=== PATIENT | female | born 2005 | race Caucasian/White ===

== ENCOUNTER → 2025-06-15 12:45 | Outpatient (BNVA) | payer OTHER, SELFPAY | PROVIDERS: Visit Provider Physician Assistant | DX: Z77.21 Contact with and (suspected) exposure to potentially hazardous body fluids (principal); S50.811A Abrasion of right forearm, initial encounter; W50.4XXA Accidental scratch by another person, initial encounter | CPT/HCPCS: 84450; 84460; 84702; 85025; 86704; 86706; 86803; 87340; 87389; 99204 ==

== ENCOUNTER → 2025-06-19 08:27 | Outpatient (BNVA) | payer OTHER, SELFPAY | PROVIDERS: Visit Provider Physician Assistant Medical | DX: Z77.21 Contact with and (suspected) exposure to potentially hazardous body fluids (principal); S50.811A Abrasion of right forearm, initial encounter; W50.4XXA Accidental scratch by another person, initial encounter; Z02.79 Encounter for issue of other medical certificate | CPT/HCPCS: 99213 ==

== ENCOUNTER → 2025-06-28 08:14 | Outpatient (BNVA) | payer OTHER, SELFPAY | PROVIDERS: Visit Provider Physician Assistant Medical | DX: Z77.21 Contact with and (suspected) exposure to potentially hazardous body fluids (principal) | CPT/HCPCS: 82150; 82565; 84450; 84460; 85025; 99213 ==

== ENCOUNTER → 2025-07-12 08:13 | Outpatient (BNVA) | payer OTHER, SELFPAY | PROVIDERS: Visit Provider Physician Assistant Medical | DX: Z77.21 Contact with and (suspected) exposure to potentially hazardous body fluids (principal); Z02.79 Encounter for issue of other medical certificate | CPT/HCPCS: 84450; 84460; 87389; 99213 ==

== ENCOUNTER 2025-07-30 08:17 | Outpatient (REF) | payer OTHER, SELFPAY ==
[2025-07-30 14:18] LABS: MANUAL DIFF FLAG NO
[2025-07-30 14:25] LABS: Hematocrit 37.0 % (37.0-47.0); Hemoglobin 12.0 g/dl (12.0-16.0); Imm Gran Abs Auto 0.01 X10*3/uL (0.00-0.03); Imm Gran Pct Auto 0.2 % (0.0-0.4); Lymphocytes Absolute Auto 1.8 X10*3/uL (1.2-4.9); Mean Corpuscular HGB Conc 32.4 g/dl (31.0-35.0); Mean Corpuscular Hemoglobin 25.4 pg (27.0-33.0); Mean Corpuscular Volume 78.4 fL (80.0-98.0); NRBC Abs Auto 0.000 X10*3/uL (0.0-0.012); NRBC Pct Auto 0.0 /100WBC (0.0-0.2); Platelet Count 308 X10*3/uL (160-400); Red Blood Count 4.72 X10*6/uL (4.20-5.50); White Blood Count 6.5 X10*3/uL (4.8-10.8)
[2025-07-30 15:35] LABS: Alanine Aminotransferase 20 U/L (0-31); Aspartate Amino Transferase 25 U/L (5-31); Estimated Glomerular Filt Rate > 60
[2025-07-30 17:37] LABS: Amylase 52 U/L (28-100)
--- OUTSIDE RECORDS SUMMARY | 2025-07-30 17:42 | XMS_ITS | Encounter Summary ---
Author Organization [facility] Address [address] [place] [address] Phone Care Team Providers Care Repairer Wood Furniture Name Role Phone Ninoska Murrell MD Primary Care Provider Encounter Details Date Type Department Care Team (Late st Contact Info) Description 09/15/2016 Documentation [facility] Family Medicine [address] [place] [address] Family Medicine, Physician [address] [place], [place] [id number] Social History Tobacco Use Types Packs/Day Years Used Date Smoking Tobacco: Never Comments:Never smoker Comments Unknown Sex and Gender Information Value Date Recorded Sex Assigned at Not on file Legal Sex Female 5:13 PM EDT Gender Identity Female 02/13/2022 3:46 PM EDT Sexual Orientation Not on file documented as of this encounter Plan of Treatment Not on file documented as of this encounter Visit Diagnoses Not on filedocumented in this encounter Care Teams Repairer Wood Furniture Relationship Specialty Start Date End Date Ninoska Murrell MD [address] [place] [id number] PCP - General 04/09/17 04/19/24 documented as of this encounter
--- OUTSIDE RECORDS SUMMARY | 2025-07-30 17:42 | XMS_ITS | Encounter Summary ---
Author Organization [facility] Address [address] [place] [address] Phone Care Team Providers Care Marble And Granite Polisher Name Role Phone Ninoska Murrell MD Primary Care Provider Encounter Details Date Type Department Care Team (Late st Contact Info) Description 04/15/2017 Conversion Encounter [facility] [place] [address] [place] [address] Social History Tobacco Use Types Packs/Day Years [...] on filedocumented in this encounter Care Teams Marble And Granite Polisher Relationship Specialty Start Date End Date Ninoska Murrell MD [address] [place] [address] PCP - General 04/09/17 04/19/24 documented as of this encounter
--- OUTSIDE RECORDS SUMMARY | 2025-07-30 17:42 | XMS_ITS | Clinical Summary ---
Author Organization [facility] Address [address] [place] [id number] Phone Care Team Providers Care Command And Control Name Role Phone Unavailable Primary Care Provider Unavailabl e Allergies No known active allergies Medications Nexplanon 68 MG implant 01/14/2022 Active Active Problems Problem Noted Date Diagnosed Date Moderate episode of recurrent major depressive d isorder 02/11/2022 Overview (02/27/2022): 02/10/22; WHO completed and dx on this date. F/u will be scheduled. Kristopher [birth year]; diag completed. Safety plan created. Kristopher Assessment & Plan (02/08/2024 5:44 PM EDT): Declined WHO to [facility] today, states she feels like things are stable right now, not concerned; did accept a list of community resources in case she changes her mind Assessment & Plan (03/13/2022 9:55 AM EDT): PHQ9 screening completed today suggests moderate symptoms of depression, symptoms identified during consultation also support a diagnosis related to depressive disorder. Symptoms have been persistent since a young age and exacerbated in June 2021, are experienced most days of the week. Considering duration and severity of symptoms outpatient long-term therapy would be of benefit. F/u appt will be scheduled to support identified needs, while Kaylen returns to college in March. PLAN: 1. Follow up with [facility]; Virtual visit will be scheduled, Kaylen is aware that appt could be scheduled in person or virtual. 2. Patient goal is to learn coping strategies and decrease panic attacks. 3. Behavioral Recommendations: a. Focus on questions discussed today regarding college. Assessment & Plan (02/27/2022 4:27 PM EDT): PHQ9 screening completed today suggests moderate symptoms of depression, symptoms identified during consultation also support a diagnosis related to depressive disorder. Symptoms have been persistent since a young age and exacerbated in June 2021, are experienced most days of the week. Considering duration and severity of symptoms outpatient long-term therapy would be of benefit. F/u appt will be scheduled to support identified needs, while Kaylen returns to college in March. PLAN: 1. Follow up with [facility]; Virtual visit will be scheduled, Kaylen is aware that appt could be scheduled in person or virtual. 2. Patient goal is to learn coping strategies and decrease panic attacks. 3. Behavioral Recommendations: a. Review safety plan as needed b. Contact crisis if any safety concern arises. c. Identify pros and cons of decisions you are considering which were identified today. Assessment & Plan (02/11/2022 11:56 AM EDT): PHQ9 screening completed today suggests moderate symptoms of depression, symptoms identified during consultation also support a diagnosis related to depressive disorder. Symptoms have been persistent since a young age and exacerbated in June 2021, are experienced most days of the week. Considering duration and severity of symptoms outpatient long-term therapy would be of benefit. F/u appt will be scheduled to support identified needs, while Kaylen returns to college in March. PLAN: 1. Follow up with [facility]; Virtual visit will be scheduled, Kaylen is aware that appt could be scheduled in person or virtual. 2. Patient goal is to learn coping strategies and decrease panic attacks. 3. Behavioral Recommendations: a. Distraction activities as music b. Grounding techniques (aroma, object in the room) c. Positive affirmations d. Identifying positive outlets for thoughts and emotions Anxiety disorder 02/11/2022 Overview (02/11/2022): 02/10/22; WHO completed and dx on this date. F/u will be scheduled. Kristopher Assessment & Plan (02/08/2024 5:44 PM EDT): Declined WHO to [facility] today, states she feels like things are stable right now, not concerned; did accept a list of community resources in case she changes her mind History of concussion 12/04/2020 Overview (12/04/2020): approx 5 yr ago Assessment & Plan (12/04/2020 11:24 AM EDT): approx 5 yr ago minor per mom no residual s/s Oligomenorrhea 10/30/2019 Overview (10/30/2019): Referred to [facility], Dr. Sofya Greenwood. Seen in Sep 2019 BMI (body mass index), pedia tric, 5% to less than 85% for age 0109/12/2019 Immunizations Immunization Administration Dates Next Due DTaP 5 07/13/2007, 5,2003,07/30,2003 H1N1 10/25/2009,09/18/2009 HPV Vaccine 9 Valent 06/12/2015 HPV, Quadrivalent 06/14/2014 Hep A, ped/adol 06/12/2015,05/11/2014 Hep B, ped/adol 02/29/2004,2003,2003 Hib (HbOC) 10/24/2004 Hib (PRP-T) 2003,2003,2003 IPV 07/13/2007, 4,2003,05/31 Influenza Split 12/08/2010 Influenza, injectable, quadrivalent 06/12/2015 Influenza, injectable, quadr ivalent, preservative free 02/10/2022,06/19/2020,09/12/2019,08/17,07/20/2017,07/13/2016,05/11/2014 Influenza, injectable, trivalent 09/18/2009 MMR 04/21/2004 MMRV 07/13/2007 Meningococcal B Trumenba 01/12/2022,12/04/2020 Meningococcal Conj (Menactra) MCV4P 09/12/2019,0 05/11/2014 Pneumococcal Conjugate 10/24/2004,2003,2003,05/31 Tdap 05/11/2014 Varicella 04/21/2004 Family History Relation Name Status Comments Brother Alive Brother: Alive and well Father Alive Father: Alive a nd well Mother Alive Mother: Alive a nd well Other No family histo ry of *CVA/Stroke, No family history of *Sudden /MA under 55, No family history of *Heart Disease, Family history of ADD/ADHD, No family history of *Thrombophilia, Family history of Autism, No family history of *Dental caries, Family history of Asthma, Family history of Diabetes mellitus Sister Alive Sister: Alive a nd well Social History Tobacco Use Types Packs/Day Years Used Date Smoking Tobacco: Never Smokeless Tobacco: Never Tobacco Cessation:Counseling Given: Yes Comments:Never smoker Alcohol Use Standard Drinks/Week Comments No 0 (1 standard drink = 0.6 oz pur e alcohol) Hunger/Food Answer Date Recorded In the last 12 months, did y ou or your family ever eat less than you felt you should because there wasn't enough money for food? No 02/01/2024 Stable Housing Answer Date Recorded Are you worried that in the next 2 months you may not have stable housing? No 02/01/2024 Transportation Concerns Answer Date Rec orded In the last 12 months, have you or your family ever had to go without healthcare because you didn't have a way to get there? No 02/01/2024 Hazards in Home Answer Date Recorded Think about the place you li ve. Do you have problems with any of the following? Pests (mice or roaches), mold, no/not working smoke detectors, water leaks, no window guards. No 2023 Financing Utilities Answer Date Recorde d In the last 12 months, has t he [employer], gas, oil, or water [employer] threatened to shut off your services in your home? No 02/01/2024 Safety at Home Answer Date Recorded Are you or your family worried about feeling saf e in your home? No 02/01/2024 Outside Support Answer Date Recorded Do you feel that you need mo re support from other people or programs to help you care for yourself or your family? No 02/01/2024 Understanding Health Concerns Answer Da te Recorded Do you need help understandi ng your or your child's healthcare needs (diagnosis, medications, plan, etc.)? Yes 02/01/2024 Financing Health Concerns Answer Date R ecorded In the last 12 months, was t here a time when your child needed to see a doctor or get medications or supplies but could not because of cost? No 02/01/2024 Missing School or Work Answer Date Kal rded Did you or your child miss s chool or work because of a health problem that could have been avoided? No 02/01/2024 Child Education Answer Date Recorded Do you have concerns about y our/your child's learning or behavior in school, preschool, or daycare? No 02/01/2024 Comments No Sex and Gender Information Value Date Recorded Sex Assigned at Not on file Legal Sex Female 5:13 PM EDT Gender Identity Female 02/13/2022 3:46 PM EDT Sexual Orientation Not on file Last Filed Vital Signs Vital Sign Reading Time Taken Comments Blood Pressure 116/76 02/08/2024 1:39 PM EDT Pulse 72 02/08/2024 1:39 PM EDT Temperature 36.6 C (97.9 F) 02/13/2022 4:31 PM EDT Respiratory Rate - - Oxygen Saturation - - Inhaled Oxygen Concentration - - Weight 57.9 kg (127 lb 9.6 oz) 02/08/2024 1:39 P M EDT Height 154.5 cm (5' 0.83 ) 02/08/2024 1:39 PM ED T Body Mass Index 24.25 02/08/2024 1:39 PM EDT Plan of Treatment Health Maintenance Due Date Last Done Comments DTaP,Tdap,and Td Vaccines (7 - Td or Tdap) 05/11/2024 05/11/2014, 07/13/2007, 10/24/2004, Additional history exists Influenza Vaccines (#1) 2025 02/11/20, 06/19/2020, 09/12/2019, Additional history exists COVID-19 Vaccine (3 - 2024-2 6 season) 2025 05/07/2022, 04/16/2022 Hepatitis B Vaccines Completed 02/29/2004, 2003, 2003 HIB Vaccines Completed 10/24/2004, 09/2003, 2003, Additional history exists Pneumococcal Vaccine Completed 10/24/2004, 2003, 2003, Additional history exists IPV Vaccines Completed 07/13/2007, 09/2003, 2003, Additional history exists MMR Vaccines Completed 07/13/2007, 04/21/2004 Varicella Vaccines Completed 07/13/2007, 04/21/2004 HPV Vaccines Completed 06/12/2015, 06/14/2014 Hepatitis A Vaccines Completed 06/12/2015, 05/11/20 14 Meningococcal Vaccine Completed 09/12/2019, 014 Men B Vaccine Completed 01/12/2022, 12/04/2020 Procedures * Due to [place] [employer] law, this organization might not be sharing sensitive test results. Procedure Name Priority Date/Time Associated Diagnosis Comments CHLAMYDIA AND GONORRHEA, AMPLIFIED Routine 02/08/2024 2:45 PM EDT Encounter for screening examination for chlamydial infection from Last 3 Months or Most Recently Relevant to Health Maintenance Results * Due to [place] [employer] law, this organization might not be sharing sensitive test results. * Chlamydia and Gonorrhoea, Amplified (02/08/2024 2:45 PM EDT) C trach BHARATH Negative Negative [facility] N gonorrhoeae BHARATH Negative Negative [facility] Urine (Urine) 02/08/2024 2:4 5 PM EDT 02/08/2024 Comment:UR Narrative [facility] - 02/09/2024 5:06 PM EDT Performed at: 01 - [facility] [address], [address], [place], [place] [id number] Victims Advocate Clerk/Specialist: Ramón Walden MD, Phone: [phone] us Marsha Black NP LAB MICROBIOLOGY - GENERAL ORDER LESLIE Final Result [facility] [address] [place] [address] from Last 3 Months or Most Recently Relevant to Health Maintenance Insurance [employer] EPO OPEN ACCESS [employer] OPEN ACCESS
[2025-07-31 08:16] LABS: HBS Num1 233.03 mIU/mL (0-7.99); ~Hepatitis B Surface Antibody REACTIVE (Nonreactive)
[2025-07-31 08:53] LABS: HIV Num 1 0.08 S/CO (0.00-0.99)
== END 2025-07-30 08:18 | disposition home or self-care (01) ==
LOC: HO.LNP 08:17
PROVIDERS: Physician Assistant; Physician Assistant Medical
DX: Z77.21 Contact with and (suspected) exposure to potentially hazardous body fluids (principal); Z02.79 Encounter for issue of other medical certificate
CPT/HCPCS: 36415; 82150; 82565; 84450; 84460; 85025; 86706; 87389; 99211

== ENCOUNTER → 2025-08-20 15:37 | Outpatient (BNVA) | payer OTHER, SELFPAY | PROVIDERS: Visit Provider Physician Assistant Medical | DX: S70.01XA Contusion of right hip, initial encounter (principal); S76.311A Strain of muscle, fascia and tendon of the posterior muscle group at thigh level, right thigh, initial encounter; S39.012A Strain of muscle, fascia and tendon of lower back, initial encounter; S46.811A Strain of other muscles, fascia and tendons at shoulder and upper arm level, right arm, initial encounter; M24.811 Other specific joint derangements of right shoulder, not elsewhere classified; Y04.2XXA Assault by strike against or bumped into by another person, initial encounter; Z02.79 Encounter for issue of other medical certificate | CPT/HCPCS: 99203 ==